=== PATIENT | female | born 1960 | race Hispanic/Latino ===

== ENCOUNTER 2022-08-27 07:40 | Outpatient (CLI) | payer BC | END 2022-08-27 07:41 | disposition home or self-care (01) | LOC: SCSMRI 07:40 | PROVIDERS: ATTEND Nurse Practitioner Family | DX: E27.8 Other specified disorders of adrenal gland (principal); D35.02 Benign neoplasm of left adrenal gland | CPT/HCPCS: 74183; 82565 ==